=== PATIENT | female | born 1940 | race Caucasian/White ===

== ENCOUNTER 2019-07-21 12:54 | Emergency (ER) | payer OTHER ==
[~2019-07-21] VITALS: Ht 160 cm; Wt 60.8 kg
[~2019-07-21 12:54] MED LIST: COZAAR100 MG; FOSAMAX70 MG; GLIMEPIRIDE4 MG; GLUCOPHAGE XR500 MG; LISINOPRIL40 MG; OMEPRAZOLE20 MG; ZOCOR40 MG
[2019-07-21] MEDS ORDERED: LEVOTHYROXINE25 MCG (13:57)
[2019-07-21] MEDS ORDERED: MUPIROCIN1 G1 TOP (16:27)
[2019-07-21] MEDS ORDERED: CIPRO500 MG PO (16:27)
== END 2019-07-21 16:53 ==
LOC: ER 12:54
DX: L03.116 Cellulitis of left lower limb (principal); L84 Corns and callosities